=== PATIENT | female | born 1995 | race American Indian/Alaskan Native ===

== ENCOUNTER 2017-07-21 17:44 | Emergency (ER) | payer OTHER ==
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
[2017-07-21 23:25] VITALS: BP 153/96
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
== END 2017-07-22 01:15 | disposition home or self-care (01) ==
LOC: ED 17:44
DX: S39.012A Strain of muscle, fascia and tendon of lower back, initial encounter (principal); G43.009 Migraine without aura, not intractable, without status migrainosus; M62.838 Other muscle spasm; V89.2XXA Person injured in unspecified motor-vehicle accident, traffic, initial encounter; Y93.89 Activity, other specified; Y92.89 Other specified places as the place of occurrence of the external cause; Y99.8 Other external cause status
CPT/HCPCS: 70360; 99283